=== PATIENT | female | born 1985 | race Caucasian/White ===

== ENCOUNTER 2020-06-20 06:18 | Day surgery (SDC) | payer OTHER ==
[~2020-06-20] VITALS: Ht 160 cm; Wt 86.2 kg
[~2020-06-20 06:18] MED LIST: ADDE10TA PO; LEXA1TAB PO
[2020-06-20] MEDS ORDERED: MIDAZOLAM INJ 2MG/2ML VIAL (J2250 PER 1MG) As Ordered ONE (06:44)
[2020-06-20] MEDS ORDERED: ONDANSETRON 4MG/2ML VIAL As Ordered ONE ×2 (06:45→07:05)
[2020-06-20] MEDS ORDERED: KETOROLAC 60MG 2ML VIAL As Ordered ONE (06:45)
[2020-06-20] MEDS ORDERED: PHENYLephrine HCL 500 MCG/5 ML (100MCG/ML) SYRINGE (J2370) As Ordered ONE (06:45)
[2020-06-20] MEDS ORDERED: fentaNYL 100 MCG/2 ML INJECTION (J3010) As Ordered ONE (06:45)
[2020-06-20] MEDS ORDERED: ePHEDrine SULFATE 25 MG/5 ML(5MG/ML) SYRINGE As Ordered ONE (06:45)
[2020-06-20] MEDS ORDERED: dexameTHASONE 4 MG/ML 1ML VIAL (J1100 PER 1MG) As Ordered ONE (06:45)
[2020-06-20] MEDS ORDERED: propofoL 200 MG/20 ML VIAL As Ordered ONE (06:46)
[2020-06-20] MEDS ORDERED: ROCURONIUM BROMIDE 50 MG/5 ML VIAL As Ordered ONE (06:46)
[2020-06-20] MEDS ORDERED: SUGAMMADEX SODIUM 500 MG/5 ML VIAL (BRIDION) As Ordered ONE (06:46)
[2020-06-20] MEDS ORDERED: LIDOCAINE 2% 100MG/5ML SDV (FOR ANES.) As Ordered ONE (06:46)
[2020-06-20 06:57] LABS: HEMATOCRIT 39.7 % (36.0-47.0); HEMOGLOBIN 12.8 g/dl (12.0-15.5); MEAN CORPUSCULAR HEMOGLOBIN 28.3 pg (27.0-33.0); MEAN CORPUSCULAR HGB CONC 32.2 g/dl (32.0-36.5); MEAN CORPUSCULAR VOLUME 87.8 fl (80.0-96.0); PLATELET COUNT, AUTOMATED 213 10^3/uL (150-450); RED BLOOD COUNT 4.52 10^6/uL (4.00-5.40)
[2020-06-20] MEDS ORDERED: SCOPOLAMINE 1MG TRANSDERMAL PATCH TOP ONE (07:00)
[2020-06-20] MEDS ORDERED: LR 1,000 ML IV ONE ×2 (07:00)
[2020-06-20] MEDS ORDERED: ONDANSETRON 4MG/2ML VIAL IV ONE ×2 (07:00→07:15)
[2020-06-20] MEDS ORDERED: BUPIVACAINE HCL 0.25% 30ML VIAL As Ordered ONE (07:12)
[2020-06-20] MEDS ORDERED: METHYLENE BLUE 0.5% (5MG/ML) 10 ML AMP (PROVAYBLUE) As Ordered ONE (07:13)
[2020-06-20] MEDS ORDERED: ACETAMINOPHEN 650 MG SUPP As Ordered ONE (07:20)
[2020-06-20 07:25] LABS: BLOOD UREA NITROGEN 14 MG/DL (7-18); CALCIUM LEVEL 9.1 MG/DL (8.5-10.1); CARBON DIOXIDE LEVEL 23 MEQ/L (21-32); CHLORIDE LEVEL 109 MEQ/L (98-107); CREATININE FOR GFR 0.89 MG/DL (0.55-1.30); GLOMERULAR FILTRATION RATE > 60.0 (>60); GLUCOSE, FASTING 130 MG/DL (70-100); HCG, SERUM QUANTITATIVE < 1.0 MIU/ML; POTASSIUM SERUM 3.8 MEQ/L (3.5-5.1); SODIUM LEVEL 140 MEQ/L (136-145)
[2020-06-20] MEDS ORDERED: SCOPOLAMINE 1MG TRANSDERMAL PATCH As Ordered ONE (07:31)
[2020-06-20] MEDS ORDERED: ACETAMINOPHEN 1000MG 100ML IV BTL (OFIRMEV) (J0131 PER 10MG) As Ordered ONE (07:55)
[2020-06-20] MEDS ORDERED: METOCLOPRAMIDE INJ 10MG/2ML VIAL (J2765 PER 1) IV PRN ×2 (09:15→10:45)
[2020-06-20] MEDS ORDERED: LR 1,000 ML IV SCH (09:15)
[2020-06-20] MEDS ORDERED: fentaNYL 100 MCG/2 ML INJECTION (J3010) IV PRN (09:15)
[2020-06-20] MEDS ORDERED: oxyCODONE 5MG TAB PO PRN (09:15)
[2020-06-20] MEDS ORDERED: HYDROMORPHONE HCL 0.5 MG/ 0.5 ML SYRINGE (J1170 PER 1) IV PRN (09:15)
[2020-06-20] MEDS ORDERED: METOCLOPRAMIDE INJ 10MG/2ML VIAL (J2765 PER 1) As Ordered ONE (10:33)
[2020-06-20 11:30] VITALS: BP 131/67
[2020-06-20] MEDS ORDERED: KETOROLAC 30 MG/ML 1ML VIAL IV PRN (14:30)
== END 2020-06-20 11:30 | disposition home or self-care (01) ==
LOC: M SDC 06:18
PROVIDERS: ATTEND Obstetrics & Gynecology
DX: N93.9 Abnormal uterine and vaginal bleeding, unspecified (principal); Z30.2 Encounter for sterilization; Z91.040 Latex allergy status; F41.9 Anxiety disorder, unspecified; Z79.899 Other long term (current) drug therapy
CPT/HCPCS: 36415; 58563; 58661; 80048; 84702; 85027; 88302; 88305; J0131; J1100; J1885; J2250; J2370; J2405; J2765; J3010

== ENCOUNTER 2021-07-25 17:38 | Emergency (ER) | payer OTHER ==
[~2021-07-25] VITALS: Ht 160 cm; Wt 90.0 kg
[2021-07-25] MEDS ORDERED: FLUTISP (17:49)
[2021-07-25] MEDS ORDERED: ALBU8.5H (17:49)
[2021-07-25] MEDS ORDERED: BENZ-18 (17:49)
[2021-07-25] MEDS ORDERED: NS 1,000 ML IV ONE (19:45)
[2021-07-25] MEDS ORDERED: ONDANSETRON 4MG/2ML VIAL IV ONE (19:45)
[2021-07-25 20:05] LABS: BASO % 0.5 % (0.0-1.0); HEMATOCRIT 45.5 % (36.0-47.0); HEMOGLOBIN 14.7 g/dl (12.0-15.5); LYMPH # 1.5 10^3/uL (1.5-5.0); MEAN CORPUSCULAR HEMOGLOBIN 28.5 pg (27.0-33.0); MEAN CORPUSCULAR HGB CONC 32.3 g/dl (32.0-36.5); MEAN CORPUSCULAR VOLUME 88.3 fl (80.0-96.0); MONO # 0.5 10^3/uL (0.0-0.8); MONO % 12.3 % (2.0-8.0); NEUTROPHILS # 2.2 10^3/uL (1.5-8.5); NEUTROPHILS % 51.7 % (36.0-66.0); PLATELET COUNT, AUTOMATED 119 10^3/uL (150-450); RED BLOOD COUNT 5.15 10^6/uL (4.00-5.40); WHITE BLOOD COUNT 4.3 10^3/uL (4.0-10.0)
--- NOTE | 2021-07-25 21:50 | REPVR ---
PROCEDURE INFORMATION: Exam: XR Chest Exam date and time: 07/25/2021 8:27 PM Age: 36 years old Clinical indication: Cough; Additional info: Short of breath, cough x 10 days TECHNIQUE: Imaging protocol: XR of the chest. Views: 1 view. COMPARISON: No relevant prior studies available. FINDINGS: Lungs: There is mild prominence of bronchovascular markings and peribronchial cuffing which could be the result of changes of bronchitis. Some prominence of the markings in the lung bases. There is a small density measuring 5 mm at the right lung base which could be overlapping shadows. To exclude any possibility of a small nodule I would recommend a CT scan of the chest. Pleural spaces: There is no evidence of pneumothorax or pleural effusion. Heart/Mediastinum: The heart is normal in size. Bones/joints: Unremarkable. IMPRESSION: Small density at the right lung base and recommend CT to exclude any possibility of a nodule. Electronically signed by: Kev River On 07/25/2021 21:49:33 PM
[2021-07-25 22:07] LABS: ALBUMIN 3.4 GM/DL (3.2-5.2); ALT/SGPT 35 U/L (12-78); BILIRUBIN,DIRECT < 0.1 MG/DL (0.0-0.2); BILIRUBIN,TOTAL 0.3 MG/DL (0.2-1.0); BLOOD UREA NITROGEN 8 MG/DL (7-18); CALCIUM LEVEL 8.3 MG/DL (8.5-10.1); CARBON DIOXIDE LEVEL 25 MEQ/L (21-32); CHLORIDE LEVEL 106 MEQ/L (98-107); GLOMERULAR FILTRATION RATE > 60.0 (>60); GLUCOSE, FASTING 93 MG/DL (70-100); LIPASE 76 U/L (73-393); POTASSIUM SERUM 3.7 MEQ/L (3.5-5.1); SODIUM LEVEL 139 MEQ/L (136-145); TOTAL PROTEIN 6.8 GM/DL (6.4-8.2)
[2021-07-25 23:04] VITALS: O2SAT 96
[2021-07-26] MEDS ORDERED: ISOVUE-370 76% 100ML VIAL As Ordered ONE (00:02)
[2021-07-26 01:05] VITALS: BP 118/72
--- NOTE | 2021-07-26 01:12 | REPVR ---
PROCEDURE INFORMATION: Exam: CTA Chest With Contrast Exam date and time: 07/25/2021 10:41 PM Age: 36 years old Clinical indication: Other: Cold symptoms; Additional info: Elev d dimer, cough, cp, SOB TECHNIQUE: Imaging protocol: Computed tomographic angiography of the chest with contrast. 3D rendering (Not supervised by radiologist): MIP and/or 3D reconstructed images were created by the technologist. Radiation optimization: All CT scans at this facility use at least one of these dose optimization techniques: automated exposure control; mA and/or kV adjustment per patient size (includes targeted exams where dose is matched to clinical indication); or iterative reconstruction. Contrast material: ISO; Contrast volume: 75 ml; Contrast route: INTRAVENOUS (IV); COMPARISON: CR Chest, 1 view 2021-07-25 20:18 FINDINGS: Pulmonary arteries: No filling defects in the pulmonary arteries to suggest pulmonary emboli. Aorta: Unremarkable. No aortic aneurysm. No aortic dissection. Lungs: Scattered mild patchy bilateral lung infiltrates, right greater than left. Pleural spaces: Unremarkable. No pneumothorax. No pleural effusion. Heart: Unremarkable. No cardiomegaly. No pericardial effusion. Lymph nodes: Unremarkable. No enlarged lymph nodes. Stomach and bowel: Small hiatal hernia with gastroesophageal junction thickening. Bones/joints: Unremarkable. No acute fracture. Soft tissues: Unremarkable. IMPRESSION: 1. Small hiatal hernia with gastroesophageal junction thickening. 2. No filling defects in the pulmonary arteries to suggest pulmonary emboli. 3. Scattered mild patchy bilateral lung infiltrates, right greater than left. Correlate for infection. Electronically signed by: Donavan Duvall On 07/26/2021 01:11:21 AM
[2021-07-26] MEDS ORDERED: PANTOPRAZOLE 40MG VIAL (C9113 PER 1) IV ONE (01:25)
[2021-07-26] MEDS ORDERED: ONDA4TAB6 PO (01:37)
[2021-07-26] MEDS ORDERED: PEPC1TAB5 PO (01:37)
[2021-07-26 09:58] LABS: CK-MB VALUE MASS < 1.0 NG/ML (<3.6); CPK CREATINE PHOSPHOKINASE 72 U/L (26-192); MB/CK RELATIVE INDEX 1.39 (< OR =4); TROPONIN I < 0.02 NG/ML (< 0.10)
--- NOTE | 2021-07-27 10:26 | ED PDOC ---
Post-Departure [facility] Carisa Andrews MD Jul 27, 2021 10:26
--- NOTE | 2021-07-28 07:43 | ECGEPIP ---
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
== END 2021-07-26 02:58 | disposition home or self-care (01) ==
LOC: M ED 17:38
DX: R05.9 Cough, unspecified (principal); R11.0 Nausea; U07.1 COVID-19; Z79.899 Other long term (current) drug therapy; Z91.040 Latex allergy status; Z91.048 Other nonmedicinal substance allergy status
CPT/HCPCS: 71045; 71275; 80048; 80076; 82550; 82553; 83690; 84484; 84702; 85025; 85379; 87798; 93005; 96361; 96374; 96375; 99284; C9113; J2405; Q9967

== ENCOUNTER 2023-09-29 09:42 | Day surgery (SDC) | payer OTHER ==
[~2023-09-29] VITALS: Ht 160 cm; Wt 97.5 kg
[~2023-09-29 09:42] MED LIST changes: +ADDE15CA3 PO; +ALBU8.5H; +BENZ-18; +FLUTISP; +LEVOTAB10 PO; +NAPR-885 PO; +NS 1,000 ML IV ONE; +OMEP-173 PO; +ONDA4TAB6 PO; +PEPC1TAB5 PO
[2023-09-29] MEDS ORDERED: propofoL 200 MG/20 ML VIAL As Ordered ONE (10:19)
[2023-09-29] MEDS ORDERED: LIDOCAINE 2% 100MG/5ML SDV (FOR ANES.) As Ordered ONE (10:19)
[2023-09-29] MEDS ORDERED: fentaNYL 100 MCG/2 ML INJECTION As Ordered ONE (10:20)
[2023-09-29 11:30] VITALS: TEMP 98.2
[2023-09-29 11:45] VITALS: BP 105/57; O2SAT 96
== END 2023-09-29 11:50 | disposition home or self-care (01) ==
LOC: M OPP 09:42
PROVIDERS: ATTEND Internal Medicine Gastroenterology
DX: K31.89 Other diseases of stomach and duodenum (principal); K29.70 Gastritis, unspecified, without bleeding; R12 Heartburn; Z79.1 Long term (current) use of non-steroidal anti-inflammatories (NSAID); Z79.899 Other long term (current) drug therapy; Z91.040 Latex allergy status; Z91.048 Other nonmedicinal substance allergy status
CPT/HCPCS: 43239; 88305; J3010